=== PATIENT | male | born 1960 | race Caucasian/White ===

== ENCOUNTER 2017-09-25 19:59 | Emergency (ER) | payer SELFPAY ==
[2017-09-25 20:09] VITALS: BP 118/84; PULSE 56; RESP 98; TEMP 98.8; O2SAT 99
--- NOTE | 2017-09-25 20:13 | C.PDOC ---
History Of Present Illness <Phil Melendez - Last Filed: 09/25/17 20:37> <Messi Nina - Last Filed: 09/25/17 23:35> I did not see the patient. Dr Melendez did (Messi Nina) <Phil Melendez - Last Filed: 09/25/17 20:37> <Messi Nina - Last Filed: 09/25/17 23:35> Time Seen by Provider: 09/25/17 20:13 Chief Complaint (Nursing): Psychiatric Evaluation Past Medical History Family History: States: No Known Family Hx <Phil Melendez - Last Filed: 09/25/17 20:37> - Social History Hx Alcohol Use: No Hx Substance Use: No - Immunization History Hx Tetanus Toxoid Vaccination: No Hx Influenza Vaccination: No Hx Pneumococcal Vaccination: No <Messi Nina - Last Filed: 09/25/17 23:35> Vital Signs: Last Vital Signs Temp 98.8 F 09/25/17 20:04 Pulse 56 L 09/25/17 20:04 Resp 98 H 09/25/17 20:04 BP 118/84 09/25/17 20:04 Pulse Ox 99 09/25/17 23:24 ED Course And Treatment Progress Note: 57 yo male brought for possibly making a statement about suicide( although this statement is by hearsay thru 3 parties), absolutely denies making such a statement and absolutely denies any thought or intention of suicide. Patient's arrived and confirms patient's version that he is absolutely not suicidal. Patient and are angry that he was brought here against his will and insist in discharge. Patient and are awake lucid and rational. Thay are very cooperative and understand all concerns. Patient is ambulatory and stable. There is no basis to hold this patient here against his will. He is not suicidal and is not a danger to himself or others. <Phil Melendez - Last Filed: 09/25/17 20:37> O2 Sat by Pulse Oximetry: 99 Progress Note: Patient was seen by Dr. Melendez, I had no interaction with the patient. <Messi Nina - Last Filed: 09/25/17 23:35> Disposition <Phil Melendez - Last Filed: 09/25/17 20:37> Counseled Patient/Family Regarding: Studies Performed, Diagnosis - Disposition Disposition Time: 20:13 <Messi Nina - Last Filed: 09/25/17 23:35> - Disposition Disposition: HOME/ ROUTINE Condition: STABLE Additional Instructions: Follow up with your doctor and counselor. Return to ER for any concerns. Forms: [facility] (Arabic), General Discharge Instructions - Clinical Impression Clinical Impression: Examination
== END 2017-09-25 20:35 | disposition home or self-care (01) ==
LOC: C.ER 19:59
DX: Z00.8 Encounter for other general examination (principal)

== ENCOUNTER 2017-11-09 23:26 | Emergency (ER) | payer MEDICAID ==
[2017-11-09] MEDS ORDERED: Albuterol-Ipratrop 3 mg / 0.5 (3 ml) UD ONE (23:32)
[2017-11-09] MEDS ORDERED: Albuterol-Ipratrop 3 mg / 0.5 (3 ml) UD INH STA (23:43)
[2017-11-09] MEDS: Albuterol-Ipratrop 3 mg / 0.5 (3 ml) UD IH SCH (23:51)
[2017-11-10] MEDS ORDERED: Albuterol-Ipratrop 3 mg / 0.5 (3 ml) UD ONE ×2
[2017-11-10] MEDS: Albuterol-Ipratrop 3 mg / 0.5 (3 ml) UD IH SCH ×2 (00:04→00:23)
[2017-11-10 00:34] LABS: CALCIUM 7.6 mg/dl (8.6-10.4); GFR AFRICAN-AMERICAN > 60; GFR NON-AFRICAN AMERICAN > 60
[2017-11-10 00:45] LABS: B-TYPE NATRIURETIC PEPTIDE 18.3 pg/mL (0-900)
[2017-11-10 00:54] LABS: ALB/GLOB RATIO 1.2 (1.0-2.1); ALBUMIN 3.8 g/dL (3.5-5.0); ALT/SGPT 38 U/L (21-72); AST/SGOT 41 U/L (17-59); BLOOD UREA NITROGEN 16 mg/dL (9-20); MAGNESIUM 1.8 mg/dL (1.6-2.3)
[2017-11-10 01:15] LABS: BASO % 0.6 % (0.0-2.0); EOS # 0.2 K/uL (0.0-0.7); EOS % 3.3 % (0.0-4.0); HEMOGLOBIN 16.2 g/dL (12.0-18.0); LYMPH # 2.4 K/uL (1.0-4.3); MEAN CELL VOLUME 91.1 fL (80.0-94.0); MEAN CORPUSCULAR HGB CONC 37.3 g/dL (33.0-37.0); MEAN PLATELET VOLUME 10.6 fL (7.2-11.7); MONO # 0.7 K/uL (0.0-0.8); MONO % 12.4 % (0.0-10.0); NEUT # 2.2 K/uL (1.8-7.0); NEUT % 39.7 % (50.0-75.0); NRBC % 0.4 % (0.0-2.0); RBC 4.75 Mil/uL (4.40-5.90); RED CELL DISTRIBUTION WIDTH 13.2 % (11.5-14.5); WHITE BLOOD COUNT 5.5 K/uL (4.8-10.8)
--- NOTE | 2017-11-10 01:26 | C.PDOC ---
Time Seen by Provider: 11/09/17 23:37 Chief Complaint (Nursing): Shortness Of Breath History Per: Patient, Family Onset/Duration Of Symptoms: Days (5) Current Symptoms Are (Timing): Still Present Initiating Event: Upper Respiratory Illness Current Respiratory Medications: See Home Med List Severity: Moderate Associated Symptoms: Productive Cough Additional History Per: Prior Records Past Medical History Reviewed: Historical Data, Nursing Documentation, Vital Signs Vital Signs: Last Vital Signs Temp 98.3 F 11/09/17 23:35 Pulse 86 11/10/17 00:57 Resp 18 11/10/17 00:57 BP 122/69 11/10/17 00:57 Pulse Ox 94 L 11/10/17 00:57 - Medical History PMH: COPD Family History: States: Unknown Family Hx - Social History Hx Tobacco Use: Yes Hx Alcohol Use: No Hx Substance Use: No - Immunization History Hx Tetanus Toxoid Vaccination: No Hx Influenza Vaccination: No Hx Pneumococcal Vaccination: No Review Of Systems Except As Marked, All Systems Reviewed And Found Negative. Constitutional: Positive for: Malaise ENT: Positive for: Nose Congestion Respiratory: Positive for: Cough, Shortness of Breath, Sputum, Wheezing. Negative for: Hemoptysis Gastrointestinal: Negative for: Vomiting, Abdominal Pain, Diarrhea Genitourinary: Negative for: Dysuria Musculoskeletal: Negative for: Neck Pain Skin: Negative for: Rash Neurological: Negative for: Weakness, Numbness, Seizures, Altered Mental Status Physical Exam - Physical Exam Appears: In Acute Distress (mild) Skin: Normal Color, Warm, Dry, No Rash Head: Atraumatic, Normacephalic Eye(s): bilateral: Normal Inspection, PERRL, EOMI Neck: Normal ROM, Supple Cardiovascular: Rhythm Regular Respiratory: No Accessory Muscle Use, Wheezing Gastrointestinal/Abdominal: Soft, No Tenderness Back: No CVA Tenderness Extremity: Normal ROM, No Pedal Edema, No Calf Tenderness Neurological/Psych: Oriented x3, Normal Motor, Normal Sensation ED Course And Treatment - Laboratory Results Result Diagrams: 11/10/17 00:09 11/10/17 00:09 Lab Interpretation: No Acute Changes ECG: Interpreted By Me, Viewed By Me ECG Rhythm: Sinus Rhythm ECG Interpretation: No Acute Changes Rate From EC O2 Sat by Pulse Oximetry: 98 Pulse Ox Interpretation: Normal - Radiology CXR: Interpreted by Me, Viewed By Me CXR Interpretation: Yes: Other (No consolidation) Progress Note: Pt feels much better and wants to go home. Lungs mostly clear. Peak flow improved to 300. Reassessment Condition: Improved Progress - Interventions Interventions:: Observation - Medications Administered Inhaled nebulized: Anticholinergic, Beta-2 agonist Intravenous: Corticosteroid - Data Reviewed Data Reviewed: Lab, Diagnostic imaging, EKG, Old records - Patient Status Patient status: Mostly improved - Critical Care Citical Care: Excluding Proc Time Critical Care Time: 45 minutes - Continuity of Care Discussed patient case with:: Patient, Family-HIPPA compliant, ED Nurse - Patient Plan Patient Plan: Discharge, F/U with PCP, Continue present meds Disposition Counseled Patient/Family Regarding: Studies Performed, Diagnosis, Need For Followup, Rx Given, Smoking Cessation - Disposition Referrals: Shaik Segundo MD [Staff Provider] - Disposition: HOME/ ROUTINE Disposition Time: 01:30 Condition: IMPROVED Additional Instructions: Follow up with your doctor within 1-2 days. Return to the ER if you develop shortness of breath, worsening of symptoms or if you have any other concerns. Prescriptions: Albuterol 0.083% [Albuterol Sulfate 3 Ml] 3 ml IH Q4 PRN #100 neb PRN Reason: Wheezing Albuterol HFA [Ventolin HFA 90 mcg/actuation (8 g)] 2 puff IH Q4 PRN #1 unit PRN Reason: Wheezing Azithromycin 1 tab PO DAILY #4 tab predniSONE [predniSONE Tab] 2 tab PO DAILY #10 tab Instructions: Acute Bronchitis (ED) - Clinical Impression Clinical Impression: Bronchitis, COPD exacerbation
[2017-11-10 01:44] VITALS: BP 98/69; PULSE 79; RESP 20; TEMP 98; O2SAT 96
--- NOTE | 2017-11-10 08:27 | RAD ---
Chest x-ray two views History: Cough. Shortness of breath. Wheezing. Comparison: None available. Findings: Mild linear increased markings at the right costophrenic angle and left lung base which may represent mild atelectasis. Diffuse increased interstitial lung markings. No gross focal infiltrate or effusion. Heart size within normal limits. Degenerative changes in the spine. Impression: Mild linear increased markings at the right costophrenic angle and left lung base which may represent mild atelectasis. Diffuse increased interstitial lung markings.
--- NOTE | 2017-11-10 17:10 | CARD ---
APPROVED REPORT EKG Measurement Heart [id number] <Conclusion> Normal sinus rhythm Normal ECG
== END 2017-11-10 01:44 | disposition home or self-care (01) ==
LOC: C.ER 23:26
DX: J44.1 Chronic obstructive pulmonary disease with (acute) exacerbation (principal); J40 Bronchitis, not specified as acute or chronic; Z87.891 Personal history of nicotine dependence
CPT/HCPCS: 71046; 80053; 83735; 83880; 84484; 85025; 87804; 93005; 96374; 99285; J2930

== ENCOUNTER 2017-11-13 12:44 | Emergency (ER) | payer MEDICAID ==
[2017-11-13 13:02] VITALS: BP 118/83; RESP 16; TEMP 97.7; O2SAT 98
[2017-11-13] MEDS ORDERED: Lidocaine 2% Inj (20ml) ONE (13:04)
[2017-11-13] MEDS ORDERED: Bacitracin 500 Units/gm Oint Foilpak UD TOP ONE (13:33)
--- NOTE | 2017-11-13 13:34 | C.PDOC ---
History Of Present Illness 57 y/o male presents to the ER for evaluation of a laceration to the lateral right thumb. Patient states the laceration occurred after he was installing an exhaust fan in the bathroom. Patient does not have any other complaints. Time Seen by Provider: 11/13/17 13:17 Chief Complaint (Nursing): Upper Extremity Problem/Injury History Per: Patient History/Exam Limitations: no limitations Onset/Duration Of Symptoms: Hrs Current Symptoms Are (Timing): Still Present Severity: Moderate Past Medical History Reviewed: Historical Data, Nursing Documentation, Vital Signs Vital Signs: Last Vital Signs Temp 97.7 F 11/13/17 12:59 Pulse 78 11/13/17 13:50 Resp 16 11/13/17 13:50 BP 118/83 11/13/17 12:59 Pulse Ox 98 11/13/17 14:00 - Medical History PMH: COPD Surgical History: No Surg Hx Family History: States: No Known Family Hx - Social History Hx Tobacco Use: Yes Hx Alcohol Use: No Hx Substance Use: No - Immunization History Hx Tetanus Toxoid Vaccination: No Hx Influenza Vaccination: No Hx Pneumococcal Vaccination: No Review Of Systems Except As Marked, All Systems Reviewed And Found Negative. Musculoskeletal: Positive for: Hand Pain (right thumb pain) Neurological: Negative for: Weakness, Numbness Physical Exam - Physical Exam Appears: Non-toxic, No Acute Distress Skin: Normal Color, Warm Head: Atraumatic, Normacephalic Eye(s): bilateral: Normal Inspection Nose: Normal Oral Mucosa: Moist Neck: Supple Chest: Symmetrical Cardiovascular: Rhythm Regular Respiratory: Normal Breath Sounds, No Accessory Muscle Use, No Rales, No Rhonchi , No Wheezing Extremity: No Tenderness, Other (2 cm laceration to the approx. lateral right thumb, no arterial bleeding) Neurological/Psych: Oriented x3, Normal Speech, Normal Motor, Normal Sensation ED Course And Treatment O2 Sat by Pulse Oximetry: 98 (RA) Pulse Ox Interpretation: Normal Laceration - Laceration Repair No standard instances Wound Length (In cm): 2 cm Anesthesia: Lidocaine 2% Wound Closure: Suture Suture Technique And Material Used: Nylon (3 interrupted nylon 3-0 w excellent closure) Medical Decision Making Medical Decision Making: R thumb, lateral finger lac 2 cm closed with 3 interrupted nylon 3-0 w excellent closure Disposition Doctor Will See Patient In The: Office Counseled Patient/Family Regarding: Studies Performed, Diagnosis - Disposition Referrals: [facility] [Outside] Disposition: HOME/ ROUTINE Disposition Time: 13:34 Condition: GOOD Additional Instructions: clean with soap and water daily. Bacitracin ointment and bandage to keep covered and clean Remove sutures in 7 days- November 20- with your PMD or return to our Fast Track Instructions: Finger Laceration (ED) Forms: [facility] [facility] (Albanian) - Clinical Impression Clinical Impression: Finger laceration - Scribe Statement The provider has reviewed the documentation as recorded by the Mehrdad Johnson Provider Attestation: All medical record entries made by the Mehrdad were at my direction and personally dictated by me. I have reviewed the chart and agree that the record accurately reflects my personal performance of the history, physical exam, medical decision making, and the department course for this patient. I have also personally directed, reviewed, and agree with the discharge instructions and disposition.
[2017-11-13 13:51] VITALS: PULSE 78
== END 2017-11-13 13:50 | disposition home or self-care (01) ==
LOC: C.ER 12:44
DX: S61.011A Laceration without foreign body of right thumb without damage to nail, initial encounter (principal); X58.XXXA Exposure to other specified factors, initial encounter; Y93.89 Activity, other specified